=== PATIENT | male | born 1940 | race Caucasian/White ===

== ENCOUNTER 2016-06-22 11:30 | Emergency (ER) | payer MEDICARE, OTHER ==
[~2016-06-22] VITALS: Ht 177.8 cm; Wt 93.2 kg
[2016-06-22] MEDS ORDERED: RT SPIRIVA18 MCG IH (11:52)
[2016-06-22] MEDS ORDERED: XANAX .25M0.25 MG/TA PO (11:53)
[2016-06-22 12:16] LABS: BASO % 0.6 % (0.0-2.0); EOS # 0.2 (0.0-0.7); EOS % 3.7 % (0-4.0); GRAN # 3.7 (1.4-6.5); HEMATOCRIT 38.2 % (42.0-52.0); HEMOGLOBIN 12.9 g/dl (13.5-18.0); LYMPH # 1.7 (1.2-3.4); LYMPH % 26.6 % (20.0-51.0); MEAN CELL VOLUME 91 fl (80.0-100.0); MEAN CORPUSCULAR HEMOGLOBIN 31 pg (27.0-31.0); MEAN CORPUSCULAR HGB CONC 34 g/dl (33.0-37.0); MEAN PLATELET VOLUME 9.7 fl (7.4-10.4); MONO # 0.6 (0.1-0.6); MONO % 9.9 % (1.7-9.3); PLATELET COUNT 136 K/mm3 (130-400); RED BLOOD COUNT 4.21 M/mm3 (4.20-5.60); REDCELL DISTRIBUTION WIDTH-CV 13.5 % (11.5-14.5); WHITE BLOOD COUNT 6.3 K/mm3 (4.8-10.8)
[2016-06-22] MEDS ORDERED: HYDRODIURIL50 MG PO (12:16)
[2016-06-22] MEDS ORDERED: TOPROL XL 50MG50 MG PO (12:17)
[2016-06-22] MEDS ORDERED: UNIPHYL 400MG400 MG PO (12:18)
[2016-06-22] MEDS ORDERED: PRAVACHOL 40MG40 MG PO (12:18)
[2016-06-22] MEDS ORDERED: COZAAR100 MG PO (12:19)
[2016-06-22] MEDS ORDERED: CELEXA 20MG20 MG/TAB PO (12:20)
[2016-06-22] MEDS ORDERED: PROAIR HFA0.09 MG/AC IH (12:21)
[2016-06-22] MEDS ORDERED: RT ADVAIR 228 DISKUS IH (12:21)
[2016-06-22 12:56] LABS: ADJUSTED CALCIUM 11.1 mg/dL (8.4-10.2); ALANINE AMINOTRANSFERASE 35 U/L (21-72); ALBUMIN 3.8 gm/dL (3.5-5.0); ALKALINE PHOSPHATASE 59 U/L (50-136); ANION GAP 9 mmol/L (7-16); BILIRUBIN,TOTAL 0.6 mg/dL (0.0-1.0); BLOOD UREA NITROGEN 19 mg/dL (9-20); CALCIUM 10.9 mg/dL (8.4-10.2); CARBON DIOXIDE 37 mmol/L (22-30); CHLORIDE 93 mmol/L (98-107); CREATININE, serum 0.72 mg/dL (0.66-1.25); GLUCOSE 95 mg/dL (74-106); LIPASE 74 U/L (23-300); POTASSIUM 3.8 mmol/L (3.4-5.0); SODIUM 139 mmol/L (137-145); TOTAL PROTEIN 7.1 gm/dL (6.4-8.2)
[2016-06-22 13:04] LABS: B-TYPE NATRIURETIC PEPTIDE 77 pg/mL (0-125)
[2016-06-22 13:11] LABS: TROPONIN-I < 0.012 ng/mL (0.000-0.034)
[2016-06-22] MEDS ORDERED: PREDNISONE20 MG PO (14:12)
[2016-06-22 14:20] VITALS: BP 118/86; PULSE 75; TEMP 97.9
[2016-11-23] MEDS ORDERED: ASPIRIN E.C. 8181 MG PO (15:47)
[2016-11-23] MEDS ORDERED: PRAVACHOL 40MG40 MG PO (15:48)
[2016-11-23] MEDS ORDERED: ALBUTEROL0.83 MG/ML IH (15:50)
[2016-11-23] MEDS ORDERED: ATROVENT I0.2 MG/1 M IH (15:51)
== END 2016-06-22 14:20 | disposition home or self-care (01) ==
LOC: COL.ER 11:30
PROVIDERS: Emergency Medicine
DX: J44.9 Chronic obstructive pulmonary disease, unspecified (principal); Z99.81 Dependence on supplemental oxygen; Z79.01 Long term (current) use of anticoagulants; I10 Essential (primary) hypertension; F17.210 Nicotine dependence, cigarettes, uncomplicated
CPT/HCPCS: J7512

== ENCOUNTER 2016-11-28 06:36 | Observation (INO) | payer MEDICARE, OTHER ==
[2016-11-28] VITALS (19 sets, daily range): BP systolic 113–195; BP diastolic 61–106; PULSE 62–89; TEMP 98.1–98.5
[~2016-11-28] VITALS: Ht 177.8 cm; Wt 68.2 kg
[~2016-11-28 06:36] MED LIST: ALBUTEROL0.83 MG/ML IH; ASPIRIN E.C. 8181 MG PO; ATROVENT I0.2 MG/1 M IH; CELEXA 20MG20 MG/TAB PO; COZAAR100 MG PO; HYDRODIURIL50 MG PO; PRAVACHOL 40MG40 MG PO; PREDNISONE20 MG PO; PROAIR HFA0.09 MG/AC IH; RT ADVAIR 228 DISKUS IH; RT SPIRIVA18 MCG IH; TOPROL XL 50MG50 MG PO; UNIPHYL 400MG400 MG PO; XANAX .25M0.25 MG/TA PO
[2016-11-28 19:23] LABS: BASO % 0.5 % (0.0-2.0); EOS # 0.1 (0.0-0.7); EOS % 1.5 % (0-4.0); GRAN # 5.7 (1.4-6.5); GRAN % 67.1 % (42.2-75.2); HEMATOCRIT 40.8 % (42.0-52.0); LYMPH # 1.8 (1.2-3.4); LYMPH % 21.8 % (20.0-51.0); MEAN CELL VOLUME 91 fl (80.0-100.0); MEAN CORPUSCULAR HEMOGLOBIN 31 pg (27.0-31.0); MEAN CORPUSCULAR HGB CONC 34 g/dl (33.0-37.0); MEAN PLATELET VOLUME 9.3 fl (7.4-10.4); MONO # 0.8 (0.1-0.6); MONO % 8.9 % (1.7-9.3); PLATELET COUNT 131 K/mm3 (130-400); REDCELL DISTRIBUTION WIDTH-CV 14.3 % (11.5-14.5); WHITE BLOOD COUNT 8.5 K/mm3 (4.8-10.8)
[2016-11-28 19:34] LABS: ADJUSTED CALCIUM 10.3 mg/dL (8.4-10.2); ALBUMIN 4.3 gm/dL (3.5-5.0); BILIRUBIN,TOTAL 0.8 mg/dL (0.0-1.0); CALCIUM 10.5 mg/dL (8.4-10.2); CREATININE, serum 0.72 mg/dL (0.66-1.25); POTASSIUM 3.6 mmol/L (3.4-5.0); TOTAL PROTEIN 7.2 gm/dL (6.4-8.2)
[2016-11-29 02:11] VITALS: BP 117/66; PULSE 72; TEMP 97.7
[2016-11-29 05:43] VITALS: BP 94/68; PULSE 71; TEMP 98
[2016-11-29 09:38] VITALS: BP 113/95; PULSE 77; TEMP 98.6
[2016-11-29 14:26] VITALS: BP 107/75; PULSE 68; TEMP 97.7
[2016-11-29 20:56] VITALS: BP 158/68; PULSE 81; TEMP 98.1
[2016-11-30] VITALS (7 sets, daily range): BP systolic 93–175; BP diastolic 61–82; PULSE 72–90; TEMP 98–98.5
[2016-12-01 03:27] VITALS: BP 154/62; PULSE 81; TEMP 98.6
[2016-12-01 08:31] VITALS: BP 111/77; PULSE 60; TEMP 98.8
[2016-12-01 11:45] VITALS: BP 178/69; PULSE 84
== END 2016-12-01 13:31 | disposition home or self-care (01) ==
LOC: COL.RAD 06:36 → SURG 14:00 → MEDICAL 11-29 18:15
PROVIDERS: Physician Assistant
DX: R91.8 Other nonspecific abnormal finding of lung field (principal); J95.811 Postprocedural pneumothorax; T81.82XA Emphysema (subcutaneous) resulting from a procedure, initial encounter; J44.9 Chronic obstructive pulmonary disease, unspecified; J96.11 Chronic respiratory failure with hypoxia; I50.9 Heart failure, unspecified; G47.33 Obstructive sleep apnea (adult) (pediatric); I10 Essential (primary) hypertension; I25.10 Atherosclerotic heart disease of native coronary artery without angina pectoris; E78.5 Hyperlipidemia, unspecified; Z87.891 Personal history of nicotine dependence; Z99.81 Dependence on supplemental oxygen
CPT/HCPCS: 99231-AI; 99232-AI; 99239; G0378; G0379; J1650; J3010

== ENCOUNTER → 2018-03-11 | Outpatient (CLI) | payer MEDICARE, OTHER | LOC: COL.CARD 12:00 | DX: R06.02 Shortness of breath (principal); R00.0 Tachycardia, unspecified ==